=== PATIENT | male | born 1940 | race Caucasian/White ===

== ENCOUNTER 2021-08-18 16:21 | Inpatient (IN) ==
[2021-08-18] MEDS ORDERED: GLUCAGON 1 MG VIAL IM PRN (19:01)
[2021-08-18] MEDS ORDERED: DEXTROSE 10% 250 ML BAG IV PRN (19:24)
[2021-08-18 19:53] LABS: Basophils % 0.3 % (0.0-0.8); Eosinophils # 0.2 10*3/uL (0.0-0.87); Eosinophils % 1.6 % (0.00-10.9); Hematocrit 34.5 VOL% (42.0-52.0); Hemoglobin 10.6 GM/DL (14.0-18.0); Immature Granulocytes % 0.5 %; Immature Granulocytes Absolute 0.06 #; Lymphocytes # 1.5 10*3/uL (1.4-4.0); Lymphocytes % 12.4 % (21.2-54.2); Mean Corpuscular HGB Conc 30.7 GM/DL (32-36); Mean Corpuscular Volume 97.7 FL (87-102); Mean Platelet Volume 11.7 FL (9.6-12.0); Monocytes # 1.1 10*3/uL (0.11-0.8); Neutrophils % 76.2 % (38.7-73.9); Platelet Count 189 T/CUMM (130-400); Red Blood Count 3.53 MC/CUMM (3.8-5.5); Red Cell Distribution Width 14.7 % (9.3-17.3); White Blood Count 12.2 T/CUMM (4-12)
[2021-08-18 20:24] LABS: Alanine Aminotransferase 14 U/L (16-61); Alkaline Phosphatase 393 U/L (45-117); Aspartate Amino Transferase 9 U/L (0-37); Bilirubin,Total < 0.39 MG/DL (0.20-1.00); Blood Urea Nitrogen 76 MG/DL (7-18); Calcium 8.2 MG/DL (8.5-10.1); Carbon Dioxide 19 MMOL/L (21-32); Chloride 112 MMOL/L (98-107); Estimated Glom Filtration Rate 10 ML/MIN; Glucose 263 MG/DL (74-106); Osmolality,Calculated 308.5 MOS/KG (273-304); Sodium 139 MMOL/L (136-145); Total Protein 7.1 G/DL (6.4-8.2)
[2021-08-18] MEDS: cefTRIAXone 1,000 MG in SODIUM CHLORIDE 0.9% 100 ML IV SCH (21:48)
[2021-08-18] MEDS: SODIUM CHLORIDE 0.9% 1,000 ML IV SCH (21:48)
[2021-08-18] MEDS: INSULIN ASPART PROTAMINE/ASPART 70/30 100 UNIT/ML SUBCUT SCH (22:05)
[2021-08-18] MEDS: ROSUVASTATIN 10 MG TABLET PO SCH (23:41)
[2021-08-19] MEDS: INSULIN REGULAR 100 UNIT/ML SUBCUT SCH ×4 (02:00→18:50)
[2021-08-19] MEDS: INSULIN ASPART PROTAMINE/ASPART 70/30 100 UNIT/ML SUBCUT SCH ×2 (07:46→17:00)
[2021-08-19 08:28] LABS: Basophils % 0.3 % (0.0-0.8); Eosinophils # 0.2 10*3/uL (0.0-0.87); Eosinophils % 1.4 % (0.00-10.9); Hematocrit 31.5 VOL% (42.0-52.0); Hemoglobin 9.7 GM/DL (14.0-18.0); Immature Granulocytes % 0.4 %; Immature Granulocytes Absolute 0.06 #; Lymphocytes # 1.8 10*3/uL (1.4-4.0); Lymphocytes % 13.2 % (21.2-54.2); Mean Corpuscular HGB Conc 30.8 GM/DL (32-36); Mean Corpuscular Volume 98.1 FL (87-102); Mean Platelet Volume 12.2 FL (9.6-12.0); Monocytes # 1.2 10*3/uL (0.11-0.8); Monocytes % 8.7 % (1.7-12.7); Platelet Count 170 T/CUMM (130-400); Red Blood Count 3.21 MC/CUMM (3.8-5.5); Red Cell Distribution Width 14.8 % (9.3-17.3); White Blood Count 13.8 T/CUMM (4-12)
[2021-08-19 08:53] LABS: Platelet Estimate Normal
[2021-08-19] MEDS: cefTRIAXone 1,000 MG in SODIUM CHLORIDE 0.9% 100 ML IV SCH (09:20)
[2021-08-19 09:26] LABS: Calcium 8.3 MG/DL (8.5-10.1); Osmolality,Calculated 300.5 MOS/KG (273-304)
[2021-08-19] MEDS ORDERED: INSULIN REGULAR 100 UNIT/ML IV ONE (10:33)
[2021-08-19] MEDS ORDERED: SODIUM ZIRCONIUM CYCLOSILICATE 10 GM PACK PO ONE (10:41)
[2021-08-19] MEDS: ASPIRIN EC 81 MG TABLET PO SCH (10:50)
[2021-08-19] MEDS: METOPROLOL SUCCINATE XL 25 MG TABLET PO SCH (10:50)
[2021-08-19] MEDS: PANTOPRAZOLE 40 MG TABLET PO SCH (10:50)
[2021-08-19] MEDS: CLOPIDOGREL 75 MG TABLET PO SCH (10:50)
[2021-08-19] MEDS: SODIUM CHLORIDE 0.9% 1,000 ML IV SCH (10:51)
[2021-08-19] MEDS: DEXTROSE 5% NACL 0.9% 1,000 ML IV SCH (11:13)
[2021-08-19] MEDS ORDERED: SODIUM BICARB INJ 150 MEQ in STERILE WATER INJ 850 ML IV SCH (11:30)
[2021-08-19] MEDS ORDERED: ALBUTEROL 0.63 MG/3 ML NEB RESP TX ONE (12:00)
[2021-08-19] MEDS ORDERED: SODIUM BICARBONATE 50 MEQ/50 ML VIAL IV ONE (13:43)
[2021-08-19] MEDS: CLINDAMYCIN INJ 600 MG/50 ML PREMIX IV SCH ×2 (14:04→21:06)
[2021-08-19] MEDS ORDERED: LIDOCAINE 1%/EPI INJ 20 ML VIAL ONE (14:38)
[2021-08-19] MEDS ORDERED: BUPIVACAINE MPF 0.25% 30 ML VIAL ONE (14:38)
[2021-08-19] MEDS ORDERED: propofoL 200 MG/20 ML VIAL IV ONE (14:46)
[2021-08-19] MEDS ORDERED: ETOMIDATE 40 MG/20 ML VIAL IV ONE (14:46)
[2021-08-19] MEDS ORDERED: LIDOCAINE 2% 5 ML VIAL ONE (14:46)
[2021-08-19] MEDS ORDERED: SODIUM CHLORIDE 0.9% 250 ML IV ONE (14:46)
[2021-08-19] MEDS ORDERED: fentaNYL 100 MCG/2 ML VIAL ONE (14:47)
[2021-08-19] MEDS ORDERED: MIDAZOLAM 2 MG/2 ML VIAL ONE (14:52)
[2021-08-19] MEDS ORDERED: SODIUM BICARB INJ 50 MEQ in IV BAG 1 EACH IV ONE (15:00)
[2021-08-19] MEDS ORDERED: ONDANSETRON ODT 4 MG TABLET PO PRN (20:28)
[2021-08-19] MEDS: ROSUVASTATIN 10 MG TABLET PO SCH (21:07)
[2021-08-20] MEDS: DEXTROSE 5% NACL 0.9% 1,000 ML IV SCH (00:24)
[2021-08-20] MEDS: INSULIN REGULAR 100 UNIT/ML SUBCUT SCH ×3 (00:26→13:26)
[2021-08-20] MEDS: CLINDAMYCIN INJ 600 MG/50 ML PREMIX IV SCH ×2 (05:04→13:25)
[2021-08-20 06:08] LABS: Basophils % 0.3 % (0.0-0.8); Eosinophils # 0.1 10*3/uL (0.0-0.87); Eosinophils % 1.2 % (0.00-10.9); Hematocrit 30.2 VOL% (42.0-52.0); Hemoglobin 9.3 GM/DL (14.0-18.0); Immature Granulocytes % 0.3 %; Immature Granulocytes Absolute 0.04 #; Lymphocytes % 17.6 % (21.2-54.2); Mean Corpuscular HGB Conc 30.8 GM/DL (32-36); Mean Corpuscular Volume 98.4 FL (87-102); Mean Platelet Volume 11.9 FL (9.6-12.0); Monocytes # 1.4 10*3/uL (0.11-0.8); Monocytes % 12.4 % (1.7-12.7); Neutrophils % 68.2 % (38.7-73.9); Platelet Count 176 T/CUMM (130-400); Red Blood Count 3.07 MC/CUMM (3.8-5.5); Red Cell Distribution Width 14.6 % (9.3-17.3); White Blood Count 11.6 T/CUMM (4-12)
[2021-08-20 06:27] LABS: Osmolality,Calculated 300.7 MOS/KG (273-304); Potassium 4.6 MMOL/L (3.5-5.1)
[2021-08-20] MEDS: INSULIN ASPART PROTAMINE/ASPART 70/30 100 UNIT/ML SUBCUT SCH (08:05)
[2021-08-20] MEDS ORDERED: MAGNESIUM SULF RIDER 4 GM/100 ML PREMIX IV PRN (08:42)
[2021-08-20] MEDS ORDERED: MAGNESIUM SULF RIDER 2 GM/50 ML PREMIX IV PRN (08:42)
[2021-08-20] MEDS ORDERED: NON-FORMULARY MEDICATION (Aspirin 81 mg Capsule) PO SCH (09:00)
[2021-08-20] MEDS ORDERED: cefTRIAXone 1,000 MG in SODIUM CHLORIDE 0.9% 100 ML IV SCH (09:00)
[2021-08-20] MEDS ORDERED: METOPROLOL SUCCINATE XL 25 MG TABLET PO SCH (09:00)
[2021-08-20] MEDS: ASPIRIN EC 81 MG TABLET PO SCH (09:51)
[2021-08-20] MEDS: CLOPIDOGREL 75 MG TABLET PO SCH (09:52)
[2021-08-20] MEDS: PANTOPRAZOLE 40 MG TABLET PO SCH (09:52)
[2021-08-20] MEDS: METOPROLOL SUCCINATE XL 25 MG TABLET PO SCH (09:52)
[2021-08-20 12:13] VITALS: BP 119/50
== END 2021-08-20 13:06 | disposition home or self-care (01) | DRG 264 ==
LOC: N.5E
PROVIDERS: ADMIT Surgery; ATTEND Surgery